=== PATIENT | male | born 1975 | race African-American/Black ===

== ENCOUNTER 2017-01-14 15:07 | Emergency (ER) | payer SELFPAY ==
[2017-01-14] MEDS ORDERED: Orphenadrine 100 MG Tab.ER PO STA (16:58)
[2017-01-14] MEDS ORDERED: Ibuprofen 600 MG Tab PO ONE (16:58)
--- NOTE | 2017-01-14 17:02 | EDM.PDOC ---
ED HPI GENERAL MEDICAL PROBLEM - General Chief Complaint: Abdominal Pain Stated Complaint: L SIDE PAIN Time Seen by Provider: 01/14/17 15:30 Source of Information: Reports: Patient, RN Notes Reviewed History Limitations: Reports: No Limitations - History of Present Illness INITIAL COMMENTS - FREE TEXT/NARRATIVE: The patient states that when he coughed while in bed around 02:00, he felt a "pop" to the inferior aspect of his lateral left ribs. This causes pain, especially if he moves or takes a deep breath. The patient states that he had similar symptoms about 2 weeks ago after coughing , but that it only lasted about one day. The patient does not have a PCP. Treatments ROPE CUTTER: Reports: Other (see below) Other Treatments ROPE CUTTER: muscle relaxer/flexeril Left Abdominal Pain Score (Numeric/FACES): 10 - Related Data Allergies Allergy/AdvReac Type Severity Reaction Status Date / Time No Known Allergies Allergy Verified 01/14/17 15:35 Home Meds: Home Meds Cyclobenzaprine [Flexeril] 10 mg PO ASDIRECTED PRN 01/14/17 [History] Orphenadrine [Norflex] 1 tab PO Q12H #20 tab.er 01/14/17 [Rx] Past Medical History Endocrine/Metabolic History: Reports: Obesity/BMI 30+ Social & Family History - Family History Family Medical History: Noncontributory - Tobacco Use Smoking Status *Q: Current Every Day Smoker Years of Tobacco use: 19 Packs/Tins Daily: 0.3 - Caffeine Use Caffeine Use: Reports: Coffee Other Caffeine Use: drinks coffee twice a week - Alcohol Use Alcohol Use History: Yes Alcohol Use Frequency: Socially - Recreational Drug Use Recreational Drug Use: No - Living Situation & Occupation Living situation: Reports: Single, with Significant Other (Fiance), with Family (2 kids) 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) ED ROS GENERAL - Review of Systems Review Of Systems: See Below Constitutional: Reports: No Symptoms HEENT: Reports: No Symptoms Respiratory: Reports: No Symptoms Cardiovascular: Reports: No Symptoms Endocrine: Reports: No Symptoms GI/Abdominal: Reports: No Symptoms : Reports: No Symptoms Musculoskeletal: Reports: No Symptoms Skin: Reports: No Symptoms Neurological: Reports: No Symptoms Psychiatric: Reports: No Symptoms Hematologic/Lymphatic: Reports: No Symptoms Immunologic: Reports: No Symptoms ED EXAM, GENERAL - Physical Exam Exam: See Below Exam Limited By: No Limitations General Appearance: Alert, WD/WN, No Apparent Distress Eye Exam: Bilateral Eye: Normal Inspection Ears: Normal External Exam, Hearing Grossly Normal Nose: Normal Inspection, No Blood Throat/Mouth: Normal Inspection, Normal Lips, Normal Voice, No Airway Compromise Head: Atraumatic, Normocephalic Neck: Normal Inspection, Full Range of Motion Respiratory/Chest: No Respiratory Distress, Lungs Clear, Normal Breath Sounds, No Accessory Muscle Use, Other (Reproducible tenderness to palpation of the inferior aspect of the left lateral ribs. A muscle spasm is palpable.) Cardiovascular: Normal Peripheral Pulses, Regular Rate, Rhythm, No Gallop, No JVD, No Murmur, No Rub Peripheral Pulses: 4+: Radial (L), Radial (R) GI/Abdominal: Normal Bowel Sounds, Soft, Non-Tender (even to the left upper quadrant), No Organomegaly, No Distention, No Abnormal Bruit, No Mass, Other ( Obese) (Male) Exam: Deferred Rectal (Males) Exam: Deferred Back Exam: Normal Inspection, Full Range of Motion, NT Extremities: Normal Inspection, Normal Range of Motion, No Pedal Edema, Normal Capillary Refill Neurological: Alert, Oriented, Normal Cognition, No Motor/Sensory Deficits Psychiatric: Normal Affect Skin Exam: Warm, Dry, Intact, Normal Color, No Rash Course - Vital Signs Last Recorded V/S: Last Vital Signs Temp 36.8 C 01/14/17 15:23 Pulse 74 01/14/17 15:23 Resp 18 01/14/17 15:23 BP 151/94 H 01/14/17 15:23 Pulse Ox 94 L 01/14/17 15:23 - Orders/Labs/Meds Orders: Active Orders 24 hr Category Date Time Status Chest 2V [CR] Stat Exams 01/14/17 15:51 Taken Meds: Medications Discontinued Medications Generic Name Dose Route Start Last Admin Trade Name Freq PRN Reason Stop Dose Admin Ibuprofen 600 mg 01/14/17 16:58 01/14/17 17:04 Motrin PO 01/14/17 16:59 600 mg ONETIME ONE Administration Orphenadrine Citrate 100 mg 01/14/17 16:58 01/14/17 17:04 Norflex PO 01/14/17 16:59 100 mg ONETIME STA Administration - Re-Assessments/Exams Free Text/Narrative Re-Assessment/Exam: 01/14/17 16:54 Two-view chest radiograph appears to be grossly normal. Cardiac silhouette is within normal limits. No pulmonary vascular congestion. No pleural effusions. No focal infiltrate. No pneumothorax. Formal read per the Radiologist pending. 01/14/17 17:02 Chest x-ray results discussed with the patient. His chest x-ray is normal. It appears that he has a muscle spasm at the inferior aspect of his lateral left ribs. I will start the patient on Norflex and ibuprofen, and e-prescribe some additional Norflex. Departure - Departure Time of Disposition: 17:03 Disposition: Home, Self-Care 01 Condition: Good Clinical Impression: Spasm of abdominal muscles of left side - Discharge Information Prescriptions: Orphenadrine [Norflex] 1 tab PO Q12H #20 tab.er Referrals: PCP,Not In Area [Primary Care Provider] - Radha Short [Physician] - Forms: ED Department Discharge Additional Instructions: You were seen in the emergency room for left side pain after coughing. Workup in the ER included a chest x-ray, which was normal. You do not have a popped long. He did not have pneumonia. You MOST LIKELY have a muscle spasm. You have been started on the muscle relaxant Norflex. Take one tablet every 12 hours, as prescribed. You have been started on the anti-inflammatory medicine ibuprofen. Take 2-3 tablets (400-600 mg) up to every 8 hours, with food, as needed for discomfort. If your symptoms fail to improve within a few days, please follow-up with Dr. Short in the clinic. If any other problems, please do not hesitate to return to the ER. - My Orders Last 24 Hours: My Active Orders 01/14/17 15:51 Chest 2V [CR] Stat - Assessment/Plan Last 24 Hours: My Active Orders 01/14/17 15:51 Chest 2V [CR] Stat
--- NOTE | 2017-01-14 17:30 | CR ---
Chest: Two views of the chest were obtained. Comparison: No prior study. Heart size and mediastinum are normal. Lungs are clear. Bony structures appear within normal limits for the patient's age. Impression: 1. Nothing acute is appreciated on two-view chest x-ray. Diagnostic code #1
== END 2017-01-14 17:17 | disposition home or self-care (01) ==
LOC: JD.ED 15:07
DX: M62.838 Other muscle spasm (principal); F17.210 Nicotine dependence, cigarettes, uncomplicated; E66.9 Obesity, unspecified
CPT/HCPCS: 71020; 99283; A9270